=== PATIENT | male | born 1995 | race Caucasian/White ===

== ENCOUNTER → 2020-08-02 13:40 | Outpatient (BNVA) | payer OTHER, SELFPAY | PROVIDERS: PCP Nurse Practitioner Family; Referring Provider Nurse Practitioner Family; Visit Provider Dietitian, Registered | DX: E66.01 Morbid (severe) obesity due to excess calories (principal); Z68.43 Body mass index [BMI] 50.0-59.9, adult ==

== ENCOUNTER → 2020-08-02 13:40 | Outpatient (BNVA) | payer OTHER, SELFPAY | PROVIDERS: PCP Nurse Practitioner Family; Referring Provider Nurse Practitioner Family; Visit Provider Dietitian, Registered | DX: Z76.89 Persons encountering health services in other specified circumstances (principal) ==

== ENCOUNTER → 2020-08-03 13:52 | Outpatient (BNVA) | payer OTHER, SELFPAY | PROVIDERS: PCP Nurse Practitioner Family; Visit Provider Physician Assistant | DX: Z01.89 Encounter for other specified special examinations (principal) | CPT/HCPCS: 99211 ==

== ENCOUNTER → 2020-08-07 08:25 | Outpatient (BNVA) | payer OTHER, SELFPAY | PROVIDERS: PCP Nurse Practitioner Family; Referring Provider Nurse Practitioner Family; Visit Provider Nurse Practitioner Family | DX: G47.33 Obstructive sleep apnea (adult) (pediatric) (principal) | CPT/HCPCS: 99214 ==

== ENCOUNTER → 2020-08-17 08:09 | Outpatient (BNVA) | payer OTHER, SELFPAY | PROVIDERS: PCP Nurse Practitioner Family; Referring Provider Nurse Practitioner Family; Visit Provider Surgery | DX: Z76.89 Persons encountering health services in other specified circumstances (principal) ==

== ENCOUNTER 2020-09-24 14:40 | Emergency (ER) | payer OTHER, SELFPAY ==
[2020-09-24 15:12] VITALS: BP 141/81; PULSE 117; RESP 20; TEMP 37.4; O2SAT 99; BMI 48.7
--- NOTE | 2020-09-24 15:16 | XR_ITS ---
EXAMINATION: XR CHEST CLINICAL INFORMATION: Cough. COMPARISON: None TECHNIQUE: Frontal view of the chest was obtained. FINDINGS: No significant abnormality is noted involving the heart, lungs, mediastinum, bony thorax or soft tissues. XR/XR chest 1V IMPRESSION: Unremarkable chest examination.
--- NOTE | 2020-09-24 15:17 | ED_ITS ---
HPI - URI/Sore Throat General Chief Complaint: Upper Respiratory Symptoms Stated Complaint: covid symptoms Time Seen by Provider: 09/24/20 15:11 Source: patient Mode of arrival: ambulatory Limitations: no limitations History of Present Illness HPI Narrative: 25-year-old male with past medical history of DANIE, asthma and obesity is here with cough, shortness of breath, fatigue, chills times 24 hours. No chest pain, leg swelling or pain. No fevers. Using home albuterol with continued symptoms. MD elicited complaint: cough Pertinent past history: asthma Onset (ago): hour(s) Consistency: intermittent Severity: mild Able to tolerate fluids by mouth: Yes Exacerbating factors: exertion Relieving factors: nothing Associated symptoms: chills, myalgias, headache, cough and shortness of breath Treatments prior to arrival: none Related Data Home Medications Medication Instructions Recorded Confirmed albuterol sulfate 90 mcg/actuation 2 puff INHALATION Q4-6H PRN 08/07/20 08/17/20 aerosol inhaler Allergies Allergy/AdvReac Type Severity Reaction Status Date / Time No Known Allergies Allergy Verified 08/07/20 11:53 Review of Systems Review of Systems: Yes all other systems are reviewed and are negative Constitutional: Constitutional: Reports no additional constitutional complaints, Denies body ache(s), Denies chills, Denies fever(s), Denies headache(s) and Denies weakness Eyes: Eyes: Reports no additional eye complaints and Denies change in vision ENT: Reports system reviewed and no additional complaints, except as documented, Denies dizziness, Denies headache(s), Denies nasal congestion, Denies nasal discharge and Denies neck pain Cardiovascular: Cardiovascular: Reports no additional cardiovascular complaints, Denies chest pain, Denies leg edema and Reports dyspnea Respiratory: Respiratory: Reports no additional respiratory complaints, Reports cough and Reports dyspnea Gastrointestinal: Gastrointestinal: Reports no additional gastrointestinal complaints, Denies abdominal pain, Denies diarrhea, Denies nausea and Denies v omiting Genitourinary: Genitourinary: Denies urinary incontinence Musculoskeletal: Musculoskeletal: Reports no additional musculoskeletal complaints, Denies back pain, Denies arthralgias, Denies joint swelling, Denies neck pain, Denies numbness and Denies tingling Integumentary/Breasts: Skin/Breast: Reports system reviewed and no additional complaints, except as docu and Denies rash Neurologic: Denies Abnormal speech present, Denies dizziness, Denies headache(s), Denies numbness, Denies tingling and Denies weakness PMFSH Past Medical History Attestation statement: The following information was validated with the patient. Source: old records reviewed and nursing notes reviewed Medical History Asthma Morbid obesity Family History Family History Father Diabetes Mother No problems noted. Brother No problems noted. Brother No problems noted. Social History Social History Alcohol intake: current Smoking Status: Never smoker Advance Directives: No Advance Directives Information Provided: No Physical Exam Vital Signs: Vital Signs: Last Vital Signs Temp 99.3 F 09/24/20 15:12 Pulse 117 H 09/24/20 15:12 Resp 20 09/24/20 15:12 BP 141/81 H 09/24/20 15:12 Pulse Ox 99 09/24/20 15:12 Body Mass Index 48.7 Const: General: cooperative, healthy appearing, comfortable and no acute distress Orientation/consciousness: patient oriented x3 Limitations: no limitations HENMT: Head: Yes normal to inspection Ears: hearing grossly normal bilaterally General nose exam: Normal external nose present Face and sinus: Yes normal facial exam Mouth: Normal oral and palatal mucosa present Throat: Yes posterior oropharynx normal Eyes: General: appearance normal, both eyes and all related structures Pupils: Equal, round and reactive pupils present Neck: Neck: Yes normal visual inspection Chest: Chest palpation & inspection: normal inspection of the chest Resp: Effort & Inspection: normal respiratory effort Auscultation: clear to auscultation bilaterally Cardio: Rate: regular rate Rhythm: regular rhythm Peripheral pulses: Peripheral pulses 2+ throughout GI: Inspection: Yes normal to inspection Palpation (GI): Soft to palpation and nontender Auscultation: normal bowel sounds Back/Spine/Pelvis: Thoracic/Lumbar Spine: thoracic and lumbar spine normal to inspection Skin: General skin exam: no rashes or lesions noted Neuro: General: patient oriented x3, no focal motor deficits and normal sensation to monofilament Cranial nerves: Yes Equal, round and reactive pupils present Cognition (Neuro): normal cognition Speech: No Abnormal speech present Gait exam (Neuro): Normal gait present Motor exam (neuro): 5/5 motor strength present throughout Extrem: General: Yes normal to inspection Course Course Course Narrative: 25-year-old male here with flu-like symptoms. Will check COVID swab and chest x-ray and reassess. 1600- Chest x-ray unremarkable. COVID test positive. Patient is well peri earing, he has some mild tachycardia which improved with rest. Likely secondary to deconditioning. No hypoxia or shortness of breath. Clear lung sounds throughout. Exam is benign. Reviewed worrisome signs and symptoms of when to return to the emergency department. Comfortable discharge home. MDM - URI/Sore Throat MDM Narrative Medical decision making narrative: influenza, viral infection, COVID-19 infection, pneumonia Medical Records Attestation: I reviewed the patient's medical records. Lab Data Attestation: I reviewed the patient's lab results. Labs: Lab Results 09/24/20 Range/Units 15:17 Coronavirus (PCR) POSITIVE A (Negative) Influenza Type A (PCR) NEGATIVE (Negative) Influenza Type B (PCR) NEGATIVE (Negative) RSV RNA Qual (PCR) NEGATIVE (Negative) Imaging Data Chest x-ray: Attestation: I personally reviewed and interpreted this imaging study as follows: Radiologist's impression: EXAMINATION: XR CHEST CLINICAL INFORMATION: Cough. COMPARISON: None TECHNIQUE: Frontal view of the chest was obtained. FINDINGS: No significant abnormality is noted involving the heart, lungs, mediastinum, bony thorax or soft tissues. XR/XR chest 1V IMPRESSION: Unremarkable chest examination. Discharge Plan Discharge Clinical Impression: COVID-19 Patient Disposition: Home, Self-Care Instructions: COVID-19 (Coronavirus Disease 2019) (ED) Additional Instructions: Take tylenol or motrin if able as needed for pain or fever. Stay well hydrated with fluids like water, gatorade and/or powerade. Wash hands at home. If living with others try to self isolate if possible. If unable wear a mask around others in your home and wash hands frequently. If COVID test is positive you will need to self isolate for a total of 14 days from when your symptoms started. You may return to work sooner if testing is negative and all symptoms resolved >72 hours. You should return to the emergency department for severe shortness of breath, chest pain or fever which does not respond to both tylenol and motrin at home. Prescriptions: No Action albuterol sulfate 90 mcg/actuation HFA aerosol inhaler 2 puff inhalation Q4-6H PRNRF: 0 Referrals: Mayo Dumont FNP-[facility] [Primary Care Provider] - 2 days
[2020-09-24 16:05] LABS: Influenza A PCR NEGATIVE (Negative); Influenza B PCR NEGATIVE (Negative); Resp Syncy Virus RNA Qual PCR NEGATIVE (Negative)
[2020-09-24 16:11] LABS: SARS COV2 PCR INHOUSE POSITIVE (Negative)
== END 2020-09-24 16:27 | disposition home or self-care (01) ==
PROVIDERS: Nurse Practitioner Family; Emergency Provider Internal Medicine; PCP Nurse Practitioner Family
DX: U07.1 COVID-19 (principal); R05 Cough; R06.02 Shortness of breath
CPT/HCPCS: 0241U; 71045; 99283

== ENCOUNTER → 2020-09-26 08:44 | Outpatient (BNVA) | payer OTHER, SELFPAY | PROVIDERS: PCP Nurse Practitioner Family; Visit Provider Surgery | DX: Z76.89 Persons encountering health services in other specified circumstances (principal) ==

== ENCOUNTER 2020-10-02 08:41 | Outpatient (REF) | payer OTHER, SELFPAY | END 2020-10-02 08:42 | disposition home or self-care (01) | LOC: HO.LAB 08:41 | PROVIDERS: Visit Provider Nurse Practitioner Family | DX: U07.1 COVID-19 (principal) | CPT/HCPCS: U0003 ==

== ENCOUNTER 2020-10-02 19:34 | Emergency (ER) | payer OTHER, SELFPAY ==
--- NOTE | 2020-10-02 | XR_ITS ---
EXAMINATION: XR CHEST CLINICAL INFORMATION: Cough, shortness of breath, fever COMPARISON: 09/24/2020 and 03/11/2017 TECHNIQUE: Frontal view of the chest was obtained. FINDINGS: Lung volumes are low with coarse interstitial opacity. No focal consolidation or mass. No pleural effusion or pneumothorax. Normal cardiomediastinal silhouette. XR/XR chest 1V IMPRESSION: Lung volumes remain low with coarse interstitial opacity, similar to the prior study 09/24/2020. The lung volumes are decreased from the study 03/11/2017. The interstitial prominence could reflect bronchovascular crowding. Prior studies give a history of asthma, which can result in chronic interstitial prominence as well. No definite acute superimposed pulmonary disease.
[2020-10-02 19:39] VITALS: PULSE 122; RESP 20; TEMP 38.8; BMI 51.3
[2020-10-02 19:45] VITALS: PULSE 132; O2SAT 98
[2020-10-02] MEDS: Acetaminophen 325 MG TABLET 650 MG PO (19:57)
--- NOTE | 2020-10-02 20:25 | ED.SOB ---
HPI - SOB/Dyspnea General Chief Complaint: Dyspnea Stated Complaint: covid+ Time Seen by Provider: 10/02/20 20:25 Source: patient Mode of arrival: ambulatory Limitations: no limitations History of Present Illness HPI Narrative: patient has history of asthma was tested positive for COVID on 09/24 was feeling better yesterday he was feeling much much better and today he has fever of 101 with increased cough and shortness of breath patient tried inhaler at home without much relief cough is mostly dry elicited complaint: shortness of breath and cough Pertinent past history: asthma Onset (ago): day(s) (8) Related Data Home Medications Medication Instructions Recorded Confirmed albuterol sulfate 90 mcg/actuation 2 puff INHALATION Q4-6H PRN 08/07/20 10/02/20 aerosol inhaler Previous Rx's Medication Instructions Recorded prednisone 20 mg tablet 20 mg PO DAILY 5 Days #5 tab 09/27/20 fluticasone propionate 44 1 puff INHALATION BID 30 Days 10/02/20 mcg/actuation HFA aerosol inhaler #10.6 g Allergies Allergy/AdvReac Type Severity Reaction Status Date / Time No Known Allergies Allergy Verified 10/02/20 09:05 Review of Systems Review of Systems: REVIEW OF SYSTEMS: Pertinent positives and negatives are stated above in the history. GEN: ++ fevers, chills, fatigue HEENT: no nasal congestion, sore throat, ear pain NEURO: no headache, dizziness, focal weakness PULM: ++ cough, shortness of breath CV: no chest pain, palpitations, LE edema ABD: no abdominal pain, nausea, vomiting, diarrhea : no dysuria, urgency, frequency SKIN: no rash ROS otherwise negative x 10 PMFSH Past Medical History Medical History Asthma Depression Dyslipidemia Fatty liver Periodic limb movement Surgical History Morbid obesity Family History Family History Father Diabetes Mother No problems noted. Brother No problems noted. Brother No problems noted. Social History Social History Alcohol intake: current Smoking Status: Never smoker Advance Directives: No Advance Directives Information Provided: No Physical Exam Vital Signs: Vital Signs: Last Vital Signs Temp 101.8 F H 10/02/20 19:39 Pulse 132 H 10/02/20 19:45 Resp 20 10/02/20 19:39 Pulse Ox 98 10/02/20 19:45 Body Mass Index 51.3 Appearance: Alert. Oriented X3. No acute distress. Eyes: Pupils equal, round and reactive to light. ENT: Pharynx normal. Neck: Normal inspection. Neck supple. CVS: tachycardia, regular rhythm. Pulses normal. Respiratory: No respiratory distress. Decreased air entry bilateral no crackles or rales prolonged expiration Abdomen: Soft and nontender. Skin: Skin warm and dry. Normal skin color. Normal skin turgor. Extremities: No lower extremity edema. Good range of movement Neuro: Oriented X 3. No motor deficit. No sensory deficit. Discharge Plan Discharge Prescriptions: No Action prednisone 20 mg tablet 20 mg PO DAILY 5 Days Qty: 5 RF: 0 Flovent HFA 44 mcg/actuation HFA aerosol inhaler 1 puff inhalation BID 30 Days Qty: 10.6 RF: 1 albuterol sulfate 90 mcg/actuation HFA aerosol inhaler 2 puff inhalation Q4-6H PRNRF: 0
[2020-10-02] MEDS: guaiFEN/Codeine SF 200/20/10ML 10 ML LIQUID PO (20:59)
[2020-10-02] MEDS: dexAMETHasone 6 MG TABLET PO (20:59)
[2020-10-02] MEDS: Azithromycin 500 MG TABLET PO (20:59)
[2020-10-02 21:02] VITALS: BP 156/87; PULSE 109; RESP 16; TEMP 38.3; O2SAT 97
== END 2020-10-02 21:26 | disposition home or self-care (01) ==
PROVIDERS: Emergency Provider Internal Medicine
DX: U07.1 COVID-19 (principal); R06.00 Dyspnea, unspecified
CPT/HCPCS: 71045; 99283; 99284; J8540

== ENCOUNTER 2020-10-12 06:44 | Outpatient (REF) | payer OTHER, SELFPAY | END 2020-10-12 06:45 | disposition home or self-care (01) | LOC: HO.LAB 06:44 | PROVIDERS: Visit Provider Nurse Practitioner Family | DX: Z13.89 Encounter for screening for other disorder (principal) ==

== ENCOUNTER → 2020-10-29 08:45 | Outpatient (BNVA) | payer OTHER, SELFPAY | PROVIDERS: PCP Nurse Practitioner Family; Visit Provider Surgery | DX: Z76.89 Persons encountering health services in other specified circumstances (principal) ==

== ENCOUNTER → 2020-11-26 08:25 | Outpatient (BNVA) | payer OTHER, SELFPAY | PROVIDERS: PCP Nurse Practitioner Family; Visit Provider Surgery ==

== ENCOUNTER 2020-12-21 09:18 | Emergency (ER) | payer OTHER, SELFPAY ==
[2020-12-21 09:20] VITALS: BP 142/81; PULSE 90; RESP 18; TEMP 37.1; O2SAT 100; BMI 49.7
--- NOTE | 2020-12-21 12:17 | ED_ITS ---
HPI - Abdominal Pain General Chief Complaint: Abdominal Pain Stated Complaint: ABD PAIN Time Seen by Provider: 12/21/20 12:03 Source: patient Mode of arrival: ambulatory Limitations: no limitations History of Present Illness HPI narrative: 25 y/o male with history of morbid obesity, fatty liver, asthma, DANIE, COVID-19 in Sep 2020 who presents to the ED from his PCP office with reports of GI bleeding. He states the bleeding started 2 days ago. The pain was preceeded by intermittent, sharp RUQ pain that started about 1 week ago. He admits to nausea but no vomiting. Two days ago he developed BRBPR with brown stool with red blood mixed in as well as red blood on the toilet paper when he wiped. This happened once. Last night he developed dark black loose stool x1 and it recurred this morning once as well. He states he has also had some LLQ ache as well. No fever, chills, dizziness, SOB, or chest pain. MD elicited complaint: abdominal pain and other (GI bleeding) Pertinent past history: none Onset (ago): day(s) (2) Pain Consistency: intermittent and now resolved Location: RUQ and LLQ Severity: moderate Quality: stabbing Radiation: none Migration to: no migration Exacerbating factors: nothing Relieving factors: nothing Context: history of similar episodes (BRBPR in the past, less severe) Associated symptoms: nausea, hematochezia, melena and other (urinary frequency ) Related Data Home Medications Medication Instructions Recorded Confirmed albuterol sulfate 90 mcg/actuation 2 puff INHALATION Q4-6H PRN 08/07/20 12/21/20 aerosol inhaler Previous Rx's Medication Instructions Recorded prednisone 20 mg tablet 20 mg PO DAILY 5 Days #5 tab 09/27/20 azithromycin [Zithromax] 250 mg PO DAILY 4 Days #4 tab 10/02/20 codeine-guaifenesin [Guaifenesin 10 ml PO Q4-6H PRN #120 ml 10/02/20 AC] dexamethasone [Decadron] 6 mg PO DAILY #7 tab 10/02/20 fluticasone propionate 44 1 puff INHALATION BID 30 Days 10/02/20 mcg/actuation HFA aerosol inhaler #10.6 g phentermine 37.5 mg capsule 37.5 mg PO DAILY #30 cap 01/17/21 phentermine 37.5 mg capsule 37.5 mg PO DAILY #30 cap 12/05/20 dicyclomine 10 mg PO TID PRN #10 cap 12/21/20 pantoprazole [Protonix] 40 mg PO DAILY #14 tab 12/21/20 Allergies Allergy/AdvReac Type Severity Reaction Status Date / Time No Known Allergies Allergy Verified 12/21/20 08:48 Review of Systems Review of Systems Constitutional: No Fever, No Chills ENT/Mouth: No sore throat, No Rhinorrhea, No Swallowing Difficulty Cardiovascular: No Chest Pain, No SOB, No Orthopnea, No Edema Respiratory: No Cough, No Sputum, No Wheezing, No dyspnea Gastrointestinal: + Nausea, No Vomiting, No Diarrhea, + abdominal Pain, + Hematochezia, + Melena Genitourinary: No Dysuria, + Urinary Frequency, No Hematuria Musculoskeletal: No joint pain, No Myalgias Skin: No Skin Lesions, No rash Neuro: No Weakness, No Numbness, No Dizziness, No Headache Psych: + Anxiety/Panic, No Depression Heme/Lymph: No Bruising, No Lymphadenopathy Endocrine: No Polyuria, No Polydipsia Physical Exam Vital Signs: Vital Signs: Last Vital Signs Temp 98.7 F 12/21/20 09:20 Pulse 90 12/21/20 09:20 Resp 18 12/21/20 09:20 BP 142/81 H 12/21/20 09:20 Pulse Ox 100 12/21/20 09:20 Body Mass Index 49.7 Appearance: Alert. Oriented X3. No acute distress. Eyes: Pupils equal, round and reactive to light. ENT: Pharynx normal. Neck: Normal inspection. Neck supple. CVS: Normal heart rate and rhythm. Pulses normal. Respiratory: No respiratory distress. Breath sounds normal. Abdomen: Morbidly obese, Soft and nontender to deep palpation, no rebound or guarding. +BS x4 JOSS: no external hemorrhoids, normal sphincter tone, no stool in rectal vault, very small amount of light brown stool on glove Skin: Skin warm and dry. Normal skin color. Normal skin turgor. No rashes. Extremities: No lower extremity edema. Neuro: Oriented X 3. Non-focal. Course Course Course Narrative: 25 y/o male presenting with intermittent abdominal pain, nausea and 2 days of GI bleeding. Concern for possible UGIB with reports of black stool for 2 day. JOSS is unrevealing, no melena noted. Abd exam is completely benign. No tachycardia to suggest active GI bleed. Will get labs and reassess. Will hold off on CT scan for now. Reevaluation(s) Reevaluation #1: H/H stable x2. No bleeding in the 5+ hours of observation in the ER. Guiac negative. LFTs are unremarkable. He is stable for discharge with initiation of PPI x2 weeks and GI referral. Adivsed to return to ER if bleeding were to recur or if he develops recurrent abdominal pain. MDM - Abdominal Pain Lab Data Result diagrams: 12/21/20 14:25 12/21/20 14:25 Labs: Lab Results 12/21/20 12/21/20 12/21/20 Range/Units 12:28 12:28 12:43 WBC 8.8 (4.8-10.8) X10*3/uL RBC 5.90 H (4.60-5.80) X10*6/uL Hgb 14.2 (14.0-18.0) g/dl Hct 46.3 (42-52) % MCV 78.5 L (80-98) fL MCH 24.1 L (27.0-33.0) pg MCHC 30.7 L (31.0-36.0) g/dl RDW 14.8 (11.0-16.0) % Plt Count TNP MPV 11.6 (9.4-12.4) fL Immature Gran % (Auto) 2.5 H (0.0-0.4) % Neut % (Auto) 65.7 (45-73) % Lymph % (Auto) 23.0 (20-40) % [place] % (Auto) 6.7 (2-11) % Eos % (Auto) 1.6 (0-4) % Baso % (Auto) 0.5 (0-2) % Lymph # (Auto) 2.0 (1.2-4.9) X10*3/uL [place] # (Auto) 0.6 (0.1-1.2) X10*3/uL Eos # (Auto) 0.1 (0.0-0.4) X10*3/uL Baso # (Auto) 0.0 (0.0-0.2) X10*3/uL Abs Immat Gran (auto) 0.22 H (0.00-0.03) X10*3/uL Absolute Neuts (auto) 5.8 (2.0-8.3) X10*3/uL Absolute Nucleated RBC 0.000 (0.0-0.012) X10*3/uL Nucleated RBC % (auto) 0.0 (0.0-0.2) /100WBC Smear Tech's Comments VERIFIED PT 12.4 (10.8-13.0) SEC INR 1.0 (0.9-1.1) APTT 25.5 (24.1-38.0) SEC Sodium (135-145) mmol/L Potassium (3.3-5.1) mmol/L Chloride (96-108) mmol/L Carbon Dioxide (22-29) mmol/L Anion Gap (12-20) BUN (9-16) mg/dL Creatinine (0.5-1.4) mg/dL Estim Creat Clear Calc Estimated GFR Random Glucose (60-115) mg/dL Calcium (8.4-10.2) mg/dL Magnesium (1.6-2.6) mg/dL Total Bilirubin (0.0-1.0) mg/dL Direct Bilirubin (0.0-0.5) mg/dL AST (5-37) U/L ALT (0-40) U/L Alkaline Phosphatase (39-117) U/L Total Protein (6.5-8.0) g/dL Albumin (3.5-5.0) g/dL Lipase (8-78) U/L Stool Occult Blood NEG (NEG) 12/21/20 12/21/20 12/21/20 Range/Units 14:25 14:25 14:25 WBC 9.8 (4.8-10.8) X10*3/uL RBC 5.82 H (4.60-5.80) X10*6/uL Hgb 14.0 (14.0-18.0) g/dl Hct 45.2 (42-52) % MCV 77.7 L (80-98) fL MCH 24.1 L (27.0-33.0) pg MCHC 31.0 (31.0-36.0) g/dl RDW 15.0 (11.0-16.0) % Plt Count 329 MPV 10.3 (9.4-12.4) fL Immature Gran % (Auto) 2.8 H (0.0-0.4) % Neut % (Auto) 60.6 (45-73) % Lymph % (Auto) 27.4 (20-40) % [place] % (Auto) 7.0 (2-11) % Eos % (Auto) 1.7 (0-4) % Baso % (Auto) 0.5 (0-2) % Lymph # (Auto) 2.7 (1.2-4.9) X10*3/uL [place] # (Auto) 0.7 (0.1-1.2) X10*3/uL Eos # (Auto) 0.2 (0.0-0.4) X10*3/uL Baso # (Auto) 0.1 (0.0-0.2) X10*3/uL Abs Immat Gran (auto) 0.27 H (0.00-0.03) X10*3/uL Absolute Neuts (auto) 5.9 (2.0-8.3) X10*3/uL Absolute Nucleated RBC 0.000 (0.0-0.012) X10*3/uL Nucleated RBC % (auto) 0.0 (0.0-0.2) /100WBC Smear Tech's Comments PT (10.8-13.0) SEC INR (0.9-1.1) APTT (24.1-38.0) SEC Sodium 140 (135-145) mmol/L Potassium 4.5 (3.3-5.1) mmol/L Chloride 106 (96-108) mmol/L Carbon Dioxide 25 (22-29) mmol/L Anion Gap 14 (12-20) BUN 10 (9-16) mg/dL Creatinine 0.85 (0.5-1.4) mg/dL Estim Creat Clear Calc 191.2 Estimated GFR > 60 Random Glucose 98 (60-115) mg/dL Calcium 9.9 (8.4-10.2) mg/dL Magnesium 2.1 (1.6-2.6) mg/dL Total Bilirubin 0.6 (0.0-1.0) mg/dL Direct Bilirubin 0.2 (0.0-0.5) mg/dL AST 29 (5-37) U/L ALT 65 H (0-40) U/L Alkaline Phosphatase 83 (39-117) U/L Total Protein 8.2 H (6.5-8.0) g/dL Albumin 4.7 (3.5-5.0) g/dL Lipase 22 (8-78) U/L Stool Occult Blood (NEG) Discharge Plan Discharge Clinical Impression: Rectal bleed Patient Disposition: Home, Self-Care Instructions: Gastrointestinal Bleeding (ED) Additional Instructions: Your blood counts and lab workup today was normal. Recommend starting medications as prescribed. Avoid spicy and acidic foods. Avoid NSAIDs such as Motrin, Advil and Ibuprofen. Do not drink alcohol. Stay hydrated and drink plenty of water. Recommend follow up with GI doctor for further workup. If you have recurrent bleeding or have symptoms of lightheadedness, shortness of breath, or chest pain come back to the ER for further evaluation. Prescriptions: New pantoprazole [Protonix] 40 mg tablet,delayed release (DR/EC) 40 mg PO DAILY Qty: 14 RF: 0 dicyclomine 10 mg capsule 10 mg PO TID PRN (Reason: cramps) Qty: 10 RF: 0 No Action prednisone 20 mg tablet 20 mg PO DAILY 5 Days Qty: 5 RF: 0 phentermine 37.5 mg capsule 37.5 mg PO DAILY Qty: 30 RF: 0 phentermine 37.5 mg capsule 37.5 mg PO DAILY Qty: 30 RF: 0 dexamethasone [Decadron] 6 mg tablet 6 mg PO DAILY Qty: 7 RF: 0 azithromycin [Zithromax] 250 mg tablet 250 mg PO DAILY 4 Days Qty: 4 RF: 0 codeine-guaifenesin [Guaifenesin AC] 10-100 mg/5 mL liquid 10 ml PO Q4-6H PRN (Reason: cough) Qty: 120 RF: 0 Flovent HFA 44 mcg/actuation HFA aerosol inhaler 1 puff inhalation BID 30 Days Qty: 10.6 RF: 1 albuterol sulfate 90 mcg/actuation HFA aerosol inhaler 2 puff inhalation Q4-6H PRNRF: 0 Referrals: Juan Danile Barlow [Physician] - 2 days (GI bleed) [facility] Past Medical History Attestation statement: The following information was validated with the patient. Medical History Asthma Depression Dyslipidemia Fatty liver Periodic limb movement Surgical History Morbid obesity Family History Family History Father Diabetes Mother No problems noted. Brother No problems noted. Brother No problems noted. Social History Social History Alcohol intake: never Smoking Status: Never smoker Advance Directives: No Advance Directives Information Provided: Yes
[2020-12-21 12:46] LABS: Hematocrit 46.3 % (42-52); Hemoglobin 14.2 g/dl (14.0-18.0); MANUAL DIFF FLAG SCAN; Mean Corpuscular HGB Conc 30.7 g/dl (31.0-36.0); Mean Corpuscular Hemoglobin 24.1 pg (27.0-33.0); Mean Corpuscular Volume 78.5 fL (80-98); PLT CLUMP 1; SCAN SMEAR FLAG 1
[2020-12-21 12:48] LABS: Basophils Percent Auto 0.5 % (0-2); Eosinophils Absolute Auto 0.1 X10*3/uL (0.0-0.4); Eosinophils Percent Auto 1.6 % (0-4); Imm Gran Abs Auto 0.22 X10*3/uL (0.00-0.03); Imm Gran Pct Auto 2.5 % (0.0-0.4); Mean Platelet Volume 11.6 fL (9.4-12.4); Monocytes Absolute Auto 0.6 X10*3/uL (0.1-1.2); Monocytes Percent Auto 6.7 % (2-11); Neutrophils Absolute Auto 5.8 X10*3/uL (2.0-8.3); Neutrophils Percent Auto 65.7 % (45-73); Prothrombin Time 12.4 SEC (10.8-13.0); Red Cell Distribution Width 14.8 % (11.0-16.0); White Blood Count 8.8 X10*3/uL (4.8-10.8)
[2020-12-21 12:50] LABS: OBS Int Ctl Valid YES; OBS1 NEG (NEG)
[2020-12-21 12:52] LABS: Partial Thromboplastin Time 25.5 SEC (24.1-38.0)
[2020-12-21 13:38] LABS: SLIDE REVIEW VERIFIED
[2020-12-21 14:30] LABS: MANUAL DIFF FLAG NO
[2020-12-21 14:32] LABS: Basophils Absolute Auto 0.1 X10*3/uL (0.0-0.2); Basophils Percent Auto 0.5 % (0-2); Eosinophils Absolute Auto 0.2 X10*3/uL (0.0-0.4); Eosinophils Percent Auto 1.7 % (0-4); Hematocrit 45.2 % (42-52); Imm Gran Abs Auto 0.27 X10*3/uL (0.00-0.03); Imm Gran Pct Auto 2.8 % (0.0-0.4); Lymphocytes Absolute Auto 2.7 X10*3/uL (1.2-4.9); Lymphocytes Percent Auto 27.4 % (20-40); Mean Corpuscular Hemoglobin 24.1 pg (27.0-33.0); Mean Corpuscular Volume 77.7 fL (80-98); Mean Platelet Volume 10.3 fL (9.4-12.4); Monocytes Absolute Auto 0.7 X10*3/uL (0.1-1.2); Neutrophils Absolute Auto 5.9 X10*3/uL (2.0-8.3); Neutrophils Percent Auto 60.6 % (45-73); Platelet Count 329 X10*3/uL (160-400); Red Blood Count 5.82 X10*6/uL (4.60-5.80); White Blood Count 9.8 X10*3/uL (4.8-10.8)
[2020-12-21 14:55] LABS: Lipase 22 U/L (8-78)
[2020-12-21 14:56] LABS: Alanine Aminotransferase 65 U/L (0-40); Albumin Level 4.7 g/dL (3.5-5.0); Alkaline Phosphatase 83 U/L (39-117); Anion Gap 14 (12-20); Aspartate Amino Transferase 29 U/L (5-37); Bilirubin Direct 0.2 mg/dL (0.0-0.5); Bilirubin Total 0.6 mg/dL (0.0-1.0); Blood Urea Nitrogen 10 mg/dL (9-16); Calcium 9.9 mg/dL (8.4-10.2); Carbon Dioxide 25 mmol/L (22-29); Chloride 106 mmol/L (96-108); Creatinine Clr Calc Pharmacy 191.2; Estimated Glomerular Filt Rate > 60; Glucose Random 98 mg/dL (60-115); Magnesium 2.1 mg/dL (1.6-2.6); Potassium 4.5 mmol/L (3.3-5.1); Sodium 140 mmol/L (135-145); Total Protein 8.2 g/dL (6.5-8.0)
== END 2020-12-21 15:27 | disposition home or self-care (01) ==
PROVIDERS: Physician Assistant; Emergency Provider Emergency Medicine Emergency Medical Services; PCP Nurse Practitioner Family
DX: K62.5 Hemorrhage of anus and rectum (principal); R10.11 Right upper quadrant pain; R10.32 Left lower quadrant pain; Z79.899 Other long term (current) drug therapy
CPT/HCPCS: 36415; 80048; 80076; 82272; 83690; 83735; 85025; 85610; 85730; 99283

== ENCOUNTER → 2020-12-24 08:19 | Outpatient (BNVA) | payer OTHER, SELFPAY | PROVIDERS: PCP Nurse Practitioner Family; Visit Provider Surgery ==

== ENCOUNTER → 2021-01-22 10:47 | Outpatient (BNVA) | payer OTHER, SELFPAY | PROVIDERS: PCP Nurse Practitioner Family; Visit Provider Physician Assistant ==

== ENCOUNTER → 2021-01-23 08:12 | Outpatient (BNVA) | payer OTHER, SELFPAY | PROVIDERS: PCP Nurse Practitioner Family; Visit Provider Surgery ==

== ENCOUNTER → 2021-02-06 08:38 | Outpatient (BNVA) | payer OTHER, SELFPAY | PROVIDERS: PCP Nurse Practitioner Family; Visit Provider Surgery ==

== ENCOUNTER → 2021-02-08 14:02 | Outpatient (BNVA) | payer OTHER, SELFPAY | PROVIDERS: PCP Nurse Practitioner Family; Visit Provider Physician Assistant ==

== ENCOUNTER 2021-02-14 06:00 | Inpatient (IN) | payer OTHER, SELFPAY ==
[2021-02-07 13:17] LABS: MANUAL DIFF FLAG NO
[2021-02-07 13:24] LABS: Basophils Absolute Auto 0.1 X10*3/uL (0.0-0.2); Basophils Percent Auto 0.5 % (0-2); Eosinophils Absolute Auto 0.2 X10*3/uL (0.0-0.4); Eosinophils Percent Auto 1.9 % (0-4); Hematocrit 45.3 % (42-52); Hemoglobin 13.9 g/dl (14.0-18.0); Imm Gran Abs Auto 0.29 X10*3/uL (0.00-0.03); Imm Gran Pct Auto 3.1 % (0.0-0.4); Lymphocytes Absolute Auto 2.2 X10*3/uL (1.2-4.9); Lymphocytes Percent Auto 23.7 % (20-40); Mean Corpuscular HGB Conc 30.7 g/dl (31.0-36.0); Mean Corpuscular Hemoglobin 24.1 pg (27.0-33.0); Mean Corpuscular Volume 78.5 fL (80-98); Mean Platelet Volume 10.9 fL (9.4-12.4); Monocytes Absolute Auto 0.8 X10*3/uL (0.1-1.2); Monocytes Percent Auto 8.7 % (2-11); Neutrophils Absolute Auto 5.8 X10*3/uL (2.0-8.3); Neutrophils Percent Auto 62.1 % (45-73); Platelet Count 328 X10*3/uL (160-400); Red Blood Count 5.77 X10*6/uL (4.60-5.80); Red Cell Distribution Width 14.5 % (11.0-16.0); White Blood Count 9.3 X10*3/uL (4.8-10.8)
[2021-02-07 13:37] LABS: Estimated Average Glucose 111 mg/dL; Hemoglobin A1c % 5.5 %
[2021-02-07 13:41] LABS: Alanine Aminotransferase 42 U/L (0-40); Albumin Level 4.3 g/dL (3.5-5.0); Alkaline Phosphatase 78 U/L (39-117); Anion Gap 13 (12-20); Aspartate Amino Transferase 20 U/L (5-37); Bilirubin Total 0.4 mg/dL (0.0-1.0); Blood Urea Nitrogen 16 mg/dL (9-16); C Reactive Protein 2.31 mg/dL (< or = 0.50); Calcium 9.5 mg/dL (8.4-10.2); Carbon Dioxide 28 mmol/L (22-29); Chloride 103 mmol/L (96-108); Cholesterol 199 mg/dL; Estimated Glomerular Filt Rate > 60; Glucose Random 109 mg/dL (60-115); HDL Cholesterol 46 mg/dL; LDL Cholesterol Calculated 140 mg/dl; Potassium 4.8 mmol/L (3.3-5.1); Sodium 139 mmol/L (135-145); Total Protein 7.8 g/dL (6.5-8.0); Triglycerides 68 mg/dL
[2021-02-07 13:44] LABS: Prothrombin Time 12.3 SEC (10.8-13.0)
[2021-02-07 13:54] LABS: Partial Thromboplastin Time 43.4 SEC (24.1-38.0)
[2021-02-07 14:04] LABS: TSH reflex Free T4 1.75 uIU/mL (0.32-4.0)
[2021-02-08 09:12] LABS: Insulin Level Total 15.3 uIU/mL
[2021-02-08 10:03] VITALS: BMI 45.9
[2021-02-09 20:22] LABS: TS Negative Control Passed; TS Panel A 0; TS Panel B 4; TS Positive Control Passed; TSpotTB Negative (SeeBelow)
--- NOTE | 2021-02-13 18:52 | MHC.SHP ---
Pre-Procedural Eval Section A The patient is an INPATIENT: Yes The History & Physical has been completed within 30 days and I have reviewed it.: No Section B Chief Complaint: obesity Details of Present Illness: Obesity Relevant Family History (Specify if Yes): No Relevant Social History: None Present Medications: see Short Stay Collaborative assessment Medical History: No relevant PMH History of Previous Operations: No relevant previous surgery Allergies: Allergies Allergy/AdvReac Type Severity Reaction Status Date / Time No Known Allergies Allergy Verified 02/08/21 08:56 Review of Systems Sugical H&P ROS: Negative: Constitution, Cardiovascular, Respiratory, Neurological, Psychiatric, Hem-Onc, Allergic/Immunologic, Gastrointestinal, Genitourinary, Musculoskeletal, Integumentary, Endocrine and Eyes/Ears/Nose/Throat Exam Surgical H&P Exam: Normal: HEENT, Normal: Heart, Normal: Lungs, Normal: Extremities, Normal: Abdomen, Normal: Skin and Normal: Neurological Plan Diagnosis/Plan: Unchanged I have reviewed the history and physical and performed a pertinent physical examination on my patient. No changes have occurred unless specified.
[2021-02-14] VITALS (11 sets, daily range): BP systolic 128–142; BP diastolic 76–86; PULSE 100–129; RESP 16–20; TEMP 35.9–36.7; O2SAT 94–98
[2021-02-14] MEDS: Lactated Ringers 1,000 ML 20 ML IVCONT (07:11)
[2021-02-14] MEDS: Lactated Ringers 1,000 ML 999 ML IV (07:12)
--- NOTE | 2021-02-14 07:15 | PC.NURSE ---
NEW ORDER FOR TYPE AND SCREEN PLACED PER NOTE IN CHART. [employer] TECHNICIAN REQUESTED NEW ORDER FOR TYPE AND SCREEN BLOOD BAND HAD AN ISSUE. A NEW ORDER FOR TYPE AND SCREEN WAS PLACED AND A BLOOD BAND WAS PLACED ON PATIENT'S RIGHT WRIST. PATIENT WITH A CPAP AND REQUEST PLACED TO HAVE IT CHECKED OUT.
--- NOTE | 2021-02-14 07:16 | HO.ANESPROP2 ---
[facility] Active Problems Active Problems: All Active Problems (Updated 02/08/21 @ 09:59 by Ilana Allison) Obstructive sleep apnea (Acute ~04/2020) Morbid obesity (Acute) COVID-19 (Acute) Encounter for screening for respiratory tuberculosis (Acute) Rectal bleed (Acute) Abdominal pain (Acute) Asthma (Acute) Past Medical History Medical History Asthma Depression Dyslipidemia Fatty liver Morbid obesity DANIE on CPAP Periodic limb movement Family History Family History Father Diabetes Mother No problems noted. Brother No problems noted. Brother No problems noted. Surgical History Surgical History (Updated 02/08/21 @ 09:59 by Ilana Allison) No significant past surgical history Social History Social History (Updated 01/22/21 @ 10:53 by Nadia Stafford [facility]) Household Members: Friend(s) Are you a primary healthcare architect to a significant other at home: No Do you presently have visiting nurse or other home services: No Alcohol intake: current Alcohol intake frequency: a few times a month Alcohol type: wine and hard liquor Smoking Status: Never smoker Use of substances other than those prescribed or required for medical reasons: No Have you been hit, kicked, punched, or otherwise hurt by someone within the past year? If so, by whom?: No Advance Directives: No Advance Directives Information Provided: No Advance Directives on File: No Recently lost weight without trying: No Current occupational status: employed Current occupation: [employer] Allergies Allergy/AdvReac Type Severity Reaction Status Date / Time No Known Allergies Allergy Verified 02/14/21 07:19 Active Medications: Current Medications Generic Name Dose Route Start Last Admin Trade Name Freq PRN Reason Stop Dose Admin Lactated Ringer's 1,000 mls @ 20 mls/hr 02/13/21 14:30 02/14/21 07:11 Lr IVCONT 20 mls/hr .Q24H BRETT Administration Home Medications Medication Instructions Recorded Confirmed Last Taken Type albuterol sulfate 90 mcg/actuation 2 puff INHALATION Q4-6H PRN 08/07/20 02/08/21 Unknown History aerosol inhaler Exam Exam Date and Time: February 14, 2021 0716 Height,Weight and Vital Signs: Height 5 ft 9 in Weight 141.067 kg Last Vital Signs Temp 98.1 F 02/14/21 06:28 Pulse 108 H 02/14/21 06:28 Resp 18 02/14/21 06:28 BP 134/81 02/14/21 06:28 Pulse Ox 98 02/14/21 06:28 Pertinent Lab Results Pertinent Lab Results: Laboratory Tests 02/07/21 02/07/21 02/07/21 12:30 12:30 12:30 WBC 9.3 RBC 5.77 Hgb 13.9 L Hct 45.3 MCV 78.5 L MCH 24.1 L MCHC 30.7 L RDW 14.5 Plt Count 328 MPV 10.9 Immature Gran % (Auto) 3.1 H Neut % (Auto) 62.1 Lymph % (Auto) 23.7 [place] % (Auto) 8.7 Eos % (Auto) 1.9 Baso % (Auto) 0.5 Lymph # (Auto) 2.2 [place] # (Auto) 0.8 Eos # (Auto) 0.2 Baso # (Auto) 0.1 Abs Immat Gran (auto) 0.29 H Absolute Neuts (auto) 5.8 Absolute Nucleated RBC 0.000 Nucleated RBC % (auto) 0.0 PT 12.3 INR 1.0 APTT 43.4 H Sodium Potassium Chloride Carbon Dioxide Anion Gap BUN Creatinine Estim Creat Clear Calc Estimated GFR Random Glucose Estimat Average Glucose Hemoglobin A1c % Total Insulin Calcium Total Bilirubin AST ALT Alkaline Phosphatase C-Reactive Protein Total Protein Albumin Triglycerides Cholesterol LDL Cholesterol, Calc HDL Cholesterol TSH TB Test (T-Spot) Com Negative TB Test Nil Control Passed TB Test Panel A 0 TB Test Panel B 4 TB Test Positive Cntrl Passed 02/07/21 02/07/21 02/07/21 12:30 12:30 12:30 WBC RBC Hgb Hct MCV MCH MCHC RDW Plt Count MPV Immature Gran % (Auto) Neut % (Auto) Lymph % (Auto) [place] % (Auto) Eos % (Auto) Baso % (Auto) Lymph # (Auto) [place] # (Auto) Eos # (Auto) Baso # (Auto) Abs Immat Gran (auto) Absolute Neuts (auto) Absolute Nucleated RBC Nucleated RBC % (auto) PT INR APTT Sodium 139 Potassium 4.8 Chloride 103 Carbon Dioxide 28 Anion Gap 13 BUN 16 D Creatinine 0.78 Estim Creat Clear Calc TNP Estimated GFR > 60 Random Glucose 109 Estimat Average Glucose 111 Hemoglobin A1c % 5.5 Total Insulin 15.3 Calcium 9.5 Total Bilirubin 0.4 AST 20 ALT 42 H Alkaline Phosphatase 78 C-Reactive Protein 2.31 H Total Protein 7.8 Albumin 4.3 Triglycerides 68 Cholesterol 199 LDL Cholesterol, Calc 140 HDL Cholesterol 46 TSH 1.75 TB Test (T-Spot) Com TB Test Nil Control TB Test Panel A TB Test Panel B TB Test Positive Cntrl Airway Mallampati Class: II TM Dist: >3cm Neck ROM: Full Loose/Missing/Broken Teeth: No Heart: tachy, reg rhythm Lungs: CTA Assessment and Plan Assessment Anesthesia Assessment: Anesthesia Plan Discussed and Chart Reviewed Final Anesthetic Review NPO: Yes ASA Class: III Final Preanesthetic Review: Meds/Allgs Chart Reviewed, Consent Obtained/Reviewed and Anes Risks/Benef Reviewed Patient Risk: Intermediate Procedure Risk: Intermediate Anesthetic Plan Anesthetic Plan: GA Disposition: Standard PACU
--- NOTE | 2021-02-14 07:20 | PC.NURSE ---
PT BROUGHT ONDANSETRON 4 MG TABS FOR A TOTAL AMOUNT OF 20. PT BROUGHT IC SUCRALFATE ONE BOTTLE. PT BROUGHT PANTOPRAZOLE 4 MG TABS FOR A TOTAL AMOUNT OF 25. NO NARCOTICS WITH PATIENT,
[2021-02-14 07:33] LABS: COVID-19 Test Negative (Negative)
--- NOTE | 2021-02-14 11:03 | P.DS_ITS ---
DS: Providers Provider Date of Service: 02/19/21 Date of admission: 02/14/21 06:00 Primary care physician: CELESTE Buckley DS: Medications Discharge Medications Home Medications: Home Medications Medication Instructions Recorded Confirmed albuterol sulfate 90 mcg/actuation 2 puff INHALATION Q4-6H PRN 08/07/20 02/08/21 aerosol inhaler Previous Rx's Medication Instructions Recorded fluticasone propionate 44 1 puff INHALATION BID 30 Days 10/02/20 mcg/actuation HFA aerosol inhaler #10.6 g phentermine 37.5 mg capsule 37.5 mg PO DAILY #30 cap 11/11/20 ondansetron HCl 4 mg tablet 4 mg PO Q12H #20 tab 02/06/21 pantoprazole 40 mg tablet,delayed 40 mg PO DAILY #30 tab 02/06/21 release sucralfate 100 mg/mL oral 10 ml PO BID #400 ml 02/06/21 suspension DS: Summary Time Spent with Patient Time attestation: ADMITTING DIAGNOSIS: morbid obesity, asthma DISCHARGE DIAGNOSIS: same, s/p laparoscopic sleeve gastrectomy PAST SURGICAL HISTORY: none PROCEDURE: upper endoscopy, laparoscopic sleeve gastrectomy DISCHARGE SUMMARY: History of Present Illness: The patient is a 25 year-old man with a BMI of 52.9 kg/m2 and associated co- morbidities as described above. The patient had extensive work-up,lost 37.8 lbs preoperatively and was electively scheduled for laparoscopic, possible open sleeve gastrectomy and gastropexy. Risks and complications of the surgery were discussed with the patient in advance, particularly the possibility of , pulmonary embolism, anastomotic leak, bleeding, bowel injury, GERD, cardiac, renal or pulmonary complications. The patient understood all the risks and was in agreement with the surgical plan. Hospital Course: The patient underwent an uneventful laparoscopic sleeve gastrectomy with gastropexy on the day of admission. Postoperatively, the patient was transferred to the surgical floor. The patient was on IV Acetaminophen and IV dilaudid for pain control. Patient was started on bariatric phase 1 diet POD #0. On postoperative day one, the patient was feeling well without nausea, vomiting, fevers, or tachycardia. The patient had some mild incisional pain. The abdomen was soft. On the morning of postoperative day one, the patient was continued on 1 ounce of water or ice every half hour. During the first day, the patient did fairly well, having some incisional pain, but able to ambulate adequately and to tolerate liquids well. Since the patient is doing well, we decided that the patient was ready to be discharged. The patient was given instructions to follow-up with me next week and to call my office for any fever over 101, persistent abdominal pain, nausea, vomiting, GERD, symptoms of DVT such as calf tenderness, or leg swelling, or pulmonary embolism such as chest pain or shortness of breath. The patient was also instructed to drink 40-60 ounces of liquids per day using the 1-ounce cups. The patient was given prescription for Tylenol for pain, Zofran prn for nausea, and pantoprazole and carafate. The patient was encouraged to ambulate and use the incentive spirometer. The patient was allowed to shower, but no baths, and encouraged to stay active at home. All of these instructions were given to the patient personally. All questions were answered and the patient understood all instructions, the instructions were also given to the patient in print. Total time spent providing and/or coordinating discharge services: 15 Discharge coordination time: Less than 30 minutes Physical Exam Vital Signs: Vital Signs: Last Vital Signs Temp 98.1 F 02/14/21 06:28 Pulse 108 H 02/14/21 06:28 Resp 18 02/14/21 06:28 BP 134/81 02/14/21 06:28 Pulse Ox 98 02/14/21 06:28 Body Mass Index 45.9 DS: Data Data Completed and Pending Pending studies at discharge: Pending at discharge 02/14/21 09:55 Surgical [PTH] Routine Labs on day of discharge: Laboratory Results - last 24 hr 02/14/21 02/14/21 06:24 06:57 COVID-19 (AMINATA) Negative COVID-19 Clin Com See Note Blood Type O Positive Antibody Screen NEGATIVE Discharge Plan Discharge Anticipated Discharge Date/Time: 02/15/21 11:01 Patient Disposition: Home, Self-Care Discharge Diagnosis: s/p sleeve gastrectomy Referrals: Mayo Dumont FNP-BC [Primary Care Provider] - 1 Week Discharge Medications: Continued Flovent HFA 44 mcg/actuation HFA aerosol inhaler 1 puff inhalation BID 30 Days Qty: 10.6 RF: 1 albuterol sulfate 90 mcg/actuation HFA aerosol inhaler 2 puff inhalation Q4-6H PRN (Reason: Wheezing) RF: 0 pantoprazole 40 mg tablet,delayed release (DR/EC) 40 mg PO DAILY Qty: 30 RF: 2 sucralfate 100 mg/mL suspension 10 ml PO BID Qty: 400 RF: 2 ondansetron HCl [Zofran] 4 mg tablet 4 mg PO Q12H Qty: 20 RF: 0 Discontinued phentermine 37.5 mg capsule 37.5 mg PO DAILY Qty: 30 RF: 0 Discharge Orders: Discharge Order (Routine); Ordered 02/15/21 Ordered By: Harjeet Monzon Diet: other Activity on Discharge: No heavy lifting Stand Alone Forms: Patient Portal Discharge page Activity Restrictions/Additional Instructions: No tub baths, sex or returning to work until discussed at first post op appointment. No exercise, alcohol, tobacco or illegal drug use. Continue to use incentive spirometer hourly while awake. Walk in home for 5- 10 minutes every 2 hours during the first week. Continue phase 1 diet today and start phase 2 diet tomorrow morning. Follow all instructions in the bariatric handbook and call with any questions. Care Plan Goals: weight loss Health Concerns: morbid obesity Plan of Treatment: see idscharge instructions Assessment: POD #1, stable s/p laparoscopic sleeve gastrectomy Discharge Date/Time: 02/15/21 09:15
--- NOTE | 2021-02-14 11:03 | PM.OP ---
Brief Operative Note Date of Service: 02/14/21 Pre-op diagnosis: Morbid obesity and comorbidities (see below) Post-op diagnosis: same Procedure: INITIAL PATIENT BMI ON PRESENTATION AT OUR OFFICE: 54 kg/m2 LAST BMI BEFORE SURGERY: 46.8 kg/m2 COMORBIDITIES: The patient participated in an intensive weekly lifestyle intervention and exercise program during which the patient has lost between the initial office visit and the last preoperative visit 48 lbs, or 12% of initial actual body weight. The patient met the BMI-criteria for bariatric surgery based on the BMI on initial presentation. The patient should not be penalized for achieving such weight loss because it is not sustainable long-term without surgical intervention and it was achieved in preparation for bariatric surgery under my direction and based on my published research ([email or web address] and [email or web address]) that a 10% preoperative weight loss improves long-term weight loss after surgery and reduces perioperative complications. Insurance carriers such as [employer] have endorsed my recommendations and have included in their policies criteria to include a 10% preoperative weight loss requirement. PROCEDURE: Esophago-gastroscopy, laparoscopic lysis of adhesions, laparoscopic sleeve gastrectomy and laparoscopic gastropexy INDICATIONS: This is a 25 year-old male who was electively scheduled for laparoscopic, possibly open sleeve gastrectomy. The risks and complications of the procedure were discussed with the patient in advance, particularly the possibility of ; pulmonary embolism; staple line leak; bleeding; GERD; cardiac, pulmonary, or renal complications; as well as long-term problems such as insufficient weight loss, vitamin deficiency, strictures, or ulcers. The patient understood all the risks, and was in agreement to proceed with surgery. DESCRIPTION OF PROCEDURE: After informed consent was obtained from the patient, the patient was given preoperative antibiotics, and was transferred to the operating room. After successful induction of general anesthesia, pneumatic compressive devices were placed on both lower extremities. An upper endoscopy was performed next. The oropharynx and esophagus appeared to be within normal limits. There was a diaphragmatic hernia present of small size consistent with the findings of the preoperative upper GI. The stomach was entered. Then after all fluid and air were suctioned and the stomach was fully decompressed, the scope was withdrawn and secured in the mid esophagus. The patient was then prepped and draped in the usual sterile manner, and abdominal access was established at the right upper quadrant with the Wendy technique. A 12 mm blunt port was inserted, and the abdomen was insufflated with CO2 to a pressure of 15 mmHg. Under direct visualization, additional ports were placed, specifically two 5 mm Versi-step ports to the left upper quadrant, and a 5 mm Versi-Step port to the right upper quadrant. 1% lidocaine plan was used to infiltrate all port sites as well as all fascia defects. Using the EndoClose suture passer device, we placed a #1 Polysorb tie across the falciform ligament in order to retract it up against the abdominal wall and prevent injury of the ligament with our instruments during the procedure. Following that, the patient was placed in a steep reverse Trendelenburg position. An additional 5 mm port was placed to the right flank for the Mediflex retractor that was used to retract the left lobe of the liver. The gastro-esophageal fat pad was opened with the ultrasonic device (Thunderbeat, Olympus) and the anterior esophagus and hiatus were exposed. The angle of His was opened with the ultrasonic device the fundus of the stomach from any diaphragmatic and splenic attachments. I then opened the gastrocolic ligament between the transverse colon and the greater curvature of the stomach with the ultrasonic device to enter the lesser sac and facilitate the ligation of the short gastric vessels. I started at a mid-point along the greater curvature and using the Thunderbeat, all short gastric vessels were divided all the way to the angle of His until the left arabella was completely dissected at its entirety. I then divided the gastro-colic ligament distally to a distance of about 3-4 cm proximal to the esophagus. There were extensive congenital adhesions between the pancreas and posterior gastric wall. Those were lysed completely with the ultrasonic device. Surgery was extremely difficult due to the patient's large BMI, body habitus and extensive amount of intra-abdominal fat. Adhesiolysis took approximately 45 min to complete. The stomach was then divided transversely with one Endo GARY-45 purple, one GARY-60 articulating purple load, one GARY-45 organge load and three GARY-60 organge loads using the AEON stapler and loads. Every effort was made that the gastric sleeve had a tubular shape and an even caliber throughout. Once the sleeve resection was completed, the staple line of the gastric sleeve was reinforced with Hemoclips. The resected stomach was retrieved without difficulty from the Wendy port. A gastropexy was then performed in order to prevent postoperative GERD and partial gastric volvulus. Several interrupted 2.0 Surgidac sutures were placed between the sleeve's staple line and the previously divided greater omentum and gastro-colic ligament using the Endo-Stitch device. An upper endoscopy was performed. There was no narrowing at the GE junction. The scope was easily advanced all the way to the pylorus which was clearly visualized. There was no narrowing anywhere and the sleeve's caliber was even throughout. The sleeve's staple line was inspected and there was no evidence of ischemia, bleeding or dehiscence. At that point the gastroscope was withdrawn from the patient?s mouth while we were decompressing the bowel and the stomach from any remaining air. I looked into the lesser sac to see how the sleeve was situating and it was situating well. There was no bleeding from the staple line, spleen, or short gastric vessels. The Mediflex retractor was removed, and the undersurface of the liver was inspected and there was no bleeding. The patient was placed in supine position. I closed the fascial defect of the 12 mm port site with a figure of eight #1 Polysorb suture. Then 100 cc 0.25 % Marcaine plain with 10 mg of Dexamethasone were used to infiltrate the fascial closure as well as all skin incisions. At this point, the abdomen was deflated, all ports were removed under direct vision, and no bleeding was noted from any of the port sites. The skin incisions were irrigated with saline and were closed with 4-0 absorbable monofilament sutures. Steri-Strips and OpSites were used to cover all incisions. The patient was extubated and was transferred in stable condition to the recovery room for further care. I was present and performed all valentin parts of the procedure. Ms. Stephensson was the medical assistant dermatology. There were no residents to assist with this case. Yousif Monzon MD, PhD, FACS Surgeon: Harjeet Monzon MD Anesthesia: GETA, local and other (TAP block) Integrated Specialist: Brittni Bueno Estimated blood loss (mL): 10 IV fluids (mL): 2,000 Urine output (mL): 0 (No [place] to record) Pathology: other (stomach) Condition: stable Disposition: PACU
--- NOTE | 2021-02-14 11:10 | PM.PNGS ---
Subjective Subjective Date of Service: 02/15/21 Interval history: Patient has mild incisional pain. Was able to ambulate and use the incentive spirometer. He is tolerating phase 1 bariatric diet. Physical Exam Vital Signs: Vital Signs: Last Vital Signs Temp 97.8 F 02/14/21 10:55 Pulse 127 H 02/14/21 11:00 Resp 20 02/14/21 11:00 BP 142/82 H 02/14/21 11:00 Pulse Ox 96 02/14/21 11:00 Body Mass Index 45.9 GI: Inspection: Yes normal to inspection, Yes incision (dry, clean and intact) and Yes obesity Extrem: Right lower extremity: normal to inspection (no calf tenderness) Left lower extremity: normal to inspection (no calf tenderness) Progress Note: A&P Assessment and plan (1) Morbid obesity: Status: Acute Assessment and Plan: 25 year old male was admitted 02/14/2021 with morbid obesity and comorbidities. Problem 1: s/p laparoscopic sleeve gastrectomy, gastropexy and lysis of adhesions Status: Doing well Plan: Check am labs, If OK, will continue phase 1 bariatric diet and discharge later today. (2) Obstructive sleep apnea: Problem details: AHI 12/hr, REM AHI 47/hr, O2 maryanne 84%, PLMS 18.5/hr with a PLMS arousal index of 4.2/hr. Status: Acute (3) S/P laparoscopic sleeve gastrectomy: Status: Acute (4) Congenital intra-abdominal adhesions: Status: Acute (5) GERD (gastroesophageal reflux disease): Status: Acute (6) Diaphragmatic hernia: Status: Acute (7) Liver fibrosis: Status: Acute (8) Asthma: Status: Acute (9) Depression: Status: Inactive (10) Back pain: Status: Acute Fall Risk Details Current Medications: Current Medications Generic Name Dose Route Start Last Admin Trade Name Freq PRN Reason Stop Dose Admin Albuterol Sulfate 2.5 mg 02/14/21 08:22 Albuterol Sulfate (0.083%) 2.5 Mg/3 Ml Vial.Neb INHALE ONCE PRN Wheezing Fentanyl 50 mcg 02/14/21 08:22 Fentanyl Citrate/Pf 100 Mcg/2 Ml Vial IVPUSH Q5M PRN Pain, Severe (Pain Scale 7-10) Fentanyl 25 mcg 02/14/21 08:22 Fentanyl Citrate/Pf 100 Mcg/2 Ml Vial IVPUSH Q5M PRN Pain, Moderate (Pain Scale 4-6 Hydromorphone HCl 0.5 mg 02/14/21 08:22 Hydromorphone Hcl 0.5 Mg/0.5 Ml Syringe IVPUSH Q5M PRN Pain, Severe (Pain Scale 7-10) Hydromorphone HCl 0.25 mg 02/14/21 08:22 Hydromorphone Hcl 0.5 Mg/0.5 Ml Syringe IVPUSH Q5M PRN Pain, Severe (Pain Scale 7-10) Lactated Ringer's 1,000 mls @ 20 mls/hr 02/13/21 14:30 02/14/21 07:11 Lr IVCONT 20 mls/hr .Q24H BRETT Administration Promethazine HCl 12.5 mg/ 50.5 mls @ 202 mls/hr 02/14/21 08:22 Sodium Chloride IV ONCE PRN Nausea and Vomiting Oxycodone HCl 10 mg 02/14/21 08:22 Oxycodone Hcl Immed Release 5 Mg Tablet PO ONCE PRN Pain, Severe (Pain Scale 7-10) Oxycodone HCl 5 mg 02/14/21 08:22 Oxycodone Hcl Immed Release 5 Mg Tablet PO ONCE PRN Pain, Severe (Pain Scale 7-10) Time Spent With Patient Time: Total time spent is greater than 50% in coordination of care (as documented) at patient's floor/unit and/or counseling patient: Time with patient: less than 15 minutes
[2021-02-14] MEDS: Pantoprazole Sodium 40 MG/10 ML VIAL IVPUSH ×2 (11:30→21:34)
[2021-02-14 12:43] LABS: Anion Gap 15 (12-20); Blood Urea Nitrogen 14 mg/dL (9-16); Carbon Dioxide 24 mmol/L (22-29); Chloride 105 mmol/L (96-108); Creatinine Clr Calc Pharmacy 163.2; Estimated Glomerular Filt Rate > 60; Glucose Random 183 mg/dL (60-115); Potassium 4.6 mmol/L (3.3-5.1); Sodium 139 mmol/L (135-145)
[2021-02-14] MEDS: Lactated Ringers 1,000 ML 125 ML IVCONT ×2 (12:45→21:23)
[2021-02-14 13:39] LABS: Calcium 9.4 mg/dL (8.4-10.2)
[2021-02-14] MEDS: ceFAZolin Sodium/Dextrose,Iso 2 GM/50 ML PIGGYBACK IV (13:49)
[2021-02-14] MEDS: Metoclopramide HCl 10 MG/2 ML VIAL IVPUSH ×2 (16:37→22:48)
[2021-02-14] MEDS: Albuterol Sulfate 90 MCG 8 GM INHALER 2 PUFF INHALE (19:42)
[2021-02-14] MEDS: ondansetron HCL 4 MG/2 ML VIAL IVPUSH (20:16)
[2021-02-14] MEDS: HYDROmorphone HCl 0.5 MG/0.5 ML SYRINGE 0.25 MG IVPUSH (22:47)
[2021-02-15 03:49] VITALS: BP 119/69; PULSE 85; RESP 20; TEMP 36.8; O2SAT 93
[2021-02-15] MEDS: Lactated Ringers 1,000 ML 125 ML IVCONT (04:29)
[2021-02-15 04:56] LABS: MANUAL DIFF FLAG NO
[2021-02-15] MEDS: ondansetron HCL 4 MG/2 ML VIAL IVPUSH (04:56)
[2021-02-15 04:59] LABS: Basophils Percent Auto 0.2 % (0-2); Hematocrit 40.5 % (42-52); Hemoglobin 12.4 g/dl (14.0-18.0); Imm Gran Abs Auto 0.21 X10*3/uL (0.00-0.03); Imm Gran Pct Auto 1.4 % (0.0-0.4); Lymphocytes Percent Auto 13.7 % (20-40); Mean Corpuscular HGB Conc 30.6 g/dl (31.0-36.0); Mean Corpuscular Hemoglobin 24.2 pg (27.0-33.0); Mean Corpuscular Volume 79.1 fL (80-98); Monocytes Absolute Auto 1.3 X10*3/uL (0.1-1.2); Monocytes Percent Auto 8.6 % (2-11); Neutrophils Absolute Auto 11.1 X10*3/uL (2.0-8.3); Neutrophils Percent Auto 76.1 % (45-73); Platelet Count 300 X10*3/uL (160-400); Red Blood Count 5.12 X10*6/uL (4.60-5.80); White Blood Count 14.6 X10*3/uL (4.8-10.8)
[2021-02-15 05:31] LABS: Anion Gap 14 (12-20); Blood Urea Nitrogen 7 mg/dL (9-16); Calcium 9.4 mg/dL (8.4-10.2); Carbon Dioxide 25 mmol/L (22-29); Chloride 104 mmol/L (96-108); Creatinine Clr Calc Pharmacy 204.1; Estimated Glomerular Filt Rate > 60; Glucose Random 110 mg/dL (60-115); Potassium 4.4 mmol/L (3.3-5.1); Sodium 139 mmol/L (135-145)
[2021-02-15] MEDS: Pantoprazole Sodium 40 MG/10 ML VIAL IVPUSH (07:29)
[2021-02-15 07:38] VITALS: BP 132/73; PULSE 94; RESP 18; TEMP 36.2; O2SAT 98
[2021-02-15] MEDS: Albuterol Sulfate 90 MCG 8 GM INHALER 2 PUFF INHALE (08:34)
== END 2021-02-15 09:15 | disposition home or self-care (01) | DRG 403 ==
LOC: HO.SSSA 11:03 → HO.S3 11:42
PROVIDERS: Physician Assistant; Admitting Provider Surgery; PCP Nurse Practitioner Family; Visit Provider Surgery
PROC: 0DB64Z3 Excision of Stomach, Percutaneous Endoscopic Approach, Vertical (ICD-10-PCS; CPT 43845; principal; 2021-02-14 07:30)
DX: E66.01 Morbid (severe) obesity due to excess calories (principal); K74.00 Hepatic fibrosis, unspecified; F32.9 Major depressive disorder, single episode, unspecified; G47.33 Obstructive sleep apnea (adult) (pediatric); K66.0 Peritoneal adhesions (postprocedural) (postinfection); Z20.822 Contact with and (suspected) exposure to COVID-19; Z68.42 Body mass index [BMI] 45.0-49.9, adult; K21.9 Gastro-esophageal reflux disease without esophagitis; J45.909 Unspecified asthma, uncomplicated
CPT/HCPCS: 36415; 80048; 80053; 80061; 83036; 83525; 84443; 85014; 85018; 85025; 85610; 85730; 86140; 86481; 86850; 86900; 86901; 87635; 88307; 88342; 99024; A4649; J0131; J0330; J0690; J1100; J1170; J2250; J2405; J2765; J3010

== ENCOUNTER → 2021-02-20 07:41 | Outpatient (BNVA) | payer OTHER, SELFPAY | PROVIDERS: PCP Nurse Practitioner Family; Visit Provider Surgery | DX: E66.01 Morbid (severe) obesity due to excess calories (principal); Z68.42 Body mass index [BMI] 45.0-49.9, adult | CPT/HCPCS: 99212 ==

== ENCOUNTER → 2021-03-22 08:30 | Outpatient (BNVA) | payer OTHER, SELFPAY | PROVIDERS: PCP Nurse Practitioner Family; Visit Provider Surgery | DX: E66.01 Morbid (severe) obesity due to excess calories (principal); Z68.42 Body mass index [BMI] 45.0-49.9, adult; Z71.3 Dietary counseling and surveillance | CPT/HCPCS: 99212 ==

== ENCOUNTER → 2021-05-01 07:20 | Outpatient (BNVA) | payer OTHER, SELFPAY | PROVIDERS: PCP Nurse Practitioner Family; Visit Provider Surgery | DX: E66.01 Morbid (severe) obesity due to excess calories (principal) | CPT/HCPCS: 99212 ==

== ENCOUNTER 2021-06-03 13:57 | Outpatient (REF) | payer OTHER, SELFPAY ==
[2021-06-03 15:16] LABS: MANUAL DIFF FLAG NO
[2021-06-03 15:24] LABS: Basophils Percent Auto 0.4 % (0-2); Eosinophils Absolute Auto 0.1 X10*3/uL (0.0-0.4); Hematocrit 45.5 % (42-52); Hemoglobin 14.2 g/dl (14.0-18.0); Imm Gran Abs Auto 0.15 X10*3/uL (0.00-0.03); Imm Gran Pct Auto 1.9 % (0.0-0.4); Lymphocytes Absolute Auto 1.5 X10*3/uL (1.2-4.9); Mean Corpuscular HGB Conc 31.2 g/dl (31.0-36.0); Mean Corpuscular Hemoglobin 24.2 pg (27.0-33.0); Mean Corpuscular Volume 77.6 fL (80-98); Mean Platelet Volume 10.7 fL (9.4-12.4); Monocytes Absolute Auto 0.6 X10*3/uL (0.1-1.2); Neutrophils Absolute Auto 5.8 X10*3/uL (2.0-8.3); Neutrophils Percent Auto 71.7 % (45-73); Platelet Count 335 X10*3/uL (160-400); Red Blood Count 5.86 X10*6/uL (4.60-5.80); Red Cell Distribution Width 15.2 % (11.0-16.0); White Blood Count 8.1 X10*3/uL (4.8-10.8)
[2021-06-03 16:00] LABS: Alanine Aminotransferase 31 U/L (0-40); Albumin Level 4.4 g/dL (3.5-5.0); Alkaline Phosphatase 78 U/L (39-117); Anion Gap 13 (12-20); Aspartate Amino Transferase 19 U/L (5-37); Bilirubin Total 0.4 mg/dL (0.0-1.0); Blood Urea Nitrogen 6 mg/dL (9-16); Calcium 10.1 mg/dL (8.4-10.2); Carbon Dioxide 27 mmol/L (22-29); Chloride 107 mmol/L (96-108); Estimated Glomerular Filt Rate > 60; Glucose Random 132 mg/dL (60-115); Iron 74 mcg/dL (45-160); Potassium 4.2 mmol/L (3.3-5.1); Sodium 143 mmol/L (135-145); Total Protein 7.7 g/dL (6.5-8.0)
[2021-06-03 16:07] LABS: Percent Iron Saturation 22 % (15-50); Total Iron Binding Capacity 334 mcg/dL (228-428); Unsaturated Iron Binding 260 ug/dL
[2021-06-03 16:21] LABS: Thyroid Stimulating Hormone 0.16 uIU/mL (0.32-4.0)
== END 2021-06-03 13:58 | disposition home or self-care (01) ==
LOC: HO.LAB 13:57
PROVIDERS: PCP Nurse Practitioner Family; Referring Provider Nurse Practitioner Family; Visit Provider Physician Assistant
DX: R10.11 Right upper quadrant pain (principal); K62.5 Hemorrhage of anus and rectum; D64.9 Anemia, unspecified; K59.00 Constipation, unspecified
CPT/HCPCS: 36415; 80053; 83540; 84443; 85025; 99212

== ENCOUNTER → 2021-06-24 07:02 | Outpatient (BNVA) | payer OTHER, SELFPAY | PROVIDERS: PCP Nurse Practitioner Family; Visit Provider Surgery ==

== ENCOUNTER → 2021-07-26 09:09 | Outpatient (BNVA) | payer OTHER, SELFPAY | PROVIDERS: PCP Nurse Practitioner Family; Visit Provider Surgery ==

== ENCOUNTER 2021-10-31 08:31 | Outpatient (REF) | payer OTHER, SELFPAY ==
[2021-10-31 10:06] LABS: Appearance Urine HAZY; Color Urine ORANGE; Leukocyte Esterase Urine NEG (NEG); Specific Gravity - Urine 1.025 (1.005-1.025); Urine Blood NEG (NEG); Urine Protein 2+ MG/DL (NEG-TRACE)
[2021-10-31 10:26] LABS: Amorphous Sediment Urine TRACE /LPF; Calcium Oxalate Crystals Urine 2+ /LPF; Mucus Urine 4+ /LPF; RBC Urine 0-2 /HPF (0); WBC Urine 0-2 /HPF (0-4)
[2021-10-31 10:50] LABS: CT PCR NOT DETECTED (Not Detect.); NG PCR NOT DETECTED (Not Detect.)
== END 2021-10-31 08:32 | disposition home or self-care (01) ==
LOC: HO.LAB 08:31
PROVIDERS: PCP Nurse Practitioner Family; Visit Provider Nurse Practitioner Family
DX: R30.0 Dysuria (principal)
CPT/HCPCS: 81001; 87086; 87491; 87591

== ENCOUNTER 2021-12-08 05:57 | Emergency (ER) | payer OTHER, SELFPAY ==
[2021-12-08 06:06] VITALS: BP 131/86; PULSE 99; RESP 16; TEMP 35.9; O2SAT 99; BMI 29.6
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
== END 2021-12-08 07:16 | disposition home or self-care (01) ==
LOC: HO.ED 06:44
PROVIDERS: Emergency Provider Emergency Medicine; PCP Nurse Practitioner Family
DX: F10.129 Alcohol abuse with intoxication, unspecified (principal); Y90.9 Presence of alcohol in blood, level not specified; Z79.899 Other long term (current) drug therapy
CPT/HCPCS: 99283

== ENCOUNTER 2023-05-25 07:38 | Outpatient (AMB) | payer OTHER, SELFPAY ==
--- NOTE | 2023-05-25 07:28 | A.OFFPC_ITS ---
Intake Visit Reasons: FMLA paper work Allergies No Known Allergies Allergy (Verified 11/06/22 15:13) HPI FMLA paper work HPI Details Pt needs paperwork filled out so he can go back to work tomorrow (05/26). Pt has been out of work due to anxiety/panic attacks. He has had therapy and is doing better. Denies any SI and HI. [facility] Medical History Asthma Back pain Depression Diaphragmatic hernia Dyslipidemia Fatty liver GERD (gastroesophageal reflux disease) Liver fibrosis Morbid obesity DANIE on CPAP Periodic limb movement Surgical History History of sleeve gastrectomy No significant past surgical history Family History Father Diabetes Mother No problems noted. Brother No problems noted. Brother No problems noted. Social History Household Members: Friend(s) Are you a primary respiratory care technician to a significant other at home: No Do you presently have visiting nurse or other home services: No Alcohol intake: current Alcohol intake frequency: a few times a month Alcohol type: wine and hard liquor Patient Tobacco Use Status: Never used Tobacco Current occupational status: employed Current occupation: [employer] Questionnaire Thrive Questionnaire Date Thrive assessed: 11/06/22 CLAUDIA-7 AMB Questionnaire CLAUDIA-7 Date CLAUDIA - 7 assessed: 11/06/22 Source: Developed by Drs. Juan Daniel Briones, Re Charles, Raciel Singh and colleagues, with an educational fede from [employer]. Review of Systems Const Reports as per HPI Physical exam (Primary Care) Tobacco/Smoking Status: Tobacco use Status Patient Tobacco Use Status Never used Tobacco 05/25/23 07:30 Thrive Assessment: Date of Thrive Assessment Date Thrive assessed 11/06/22 05/25/23 07:30 Const General: cooperative Orientation/consciousness: patient oriented x3 Neuro General: patient oriented x3 Psych Mental Status: mental status grossly normal Speech and movement: Clear speech present Affect: normal affect Attitude: cooperative Thought process: Normal thought process present Thought content: Normal thought content present Insight: Good insight present (Psych) Judgement: Good judgement present (Psych) Telehealth Telehealth Location of provider rendering services: practice address Location of patient: address on file Patient Identification confirmed using: Name, : Yes Telehealth method: voice only Patient verbally consented to treatment: Yes Patient verbally consented to billing insurance company: Yes Patient informed of any privacy concerns related to visit: Yes Minutes spent on Phone/Video with Pt.: 10 Assessment and Plan Assessment & Plan (1) Panic attacks: Code(s): F41.0 - Panic disorder [episodic paroxysmal anxiety] (2) Depression: Code(s): F32.9 - Major depressive disorder, single episode, unspecified (3) Anxiety: Code(s): F41.9 - Anxiety disorder, unspecified (4) Grief reaction: Code(s): F43.21 - Adjustment disorder with depressed mood Plan The patient agreed to the use of a medical device for this encounter. Scribed for MILLY Low by [employer] medical device, on 05/25/2023 at 07:30 EST. Coding Level of Care Code Tele Est Pt Level 3 (78193) Diagnoses Panic attacks F41.0 Depression F32.9 Anxiety F41.9 Grief reaction F43.21
== END 2023-05-25 14:53 | disposition home or self-care (01) ==
LOC: HO.HMGC 07:38
PROVIDERS: PCP Nurse Practitioner Family; Visit Provider Nurse Practitioner Family
DX: F41.0 Panic disorder [episodic paroxysmal anxiety] (principal); F32.9 Major depressive disorder, single episode, unspecified; F41.9 Anxiety disorder, unspecified; F43.21 Adjustment disorder with depressed mood
CPT/HCPCS: 99213

== ENCOUNTER 2024-02-18 08:45 | Emergency (ER) | payer OTHER, SELFPAY ==
[2024-02-18 09:08] VITALS: BP 150/93; PULSE 99; RESP 18; TEMP 36.4; O2SAT 100; BMI 46.4
--- NOTE | 2024-02-18 09:38 | ED.DENTAL ---
HPI - Dental/Oral General Chief complaint: Dental/Oral Stated complaint: Tooth pain Time Seen by Provider: 02/18/24 09:28 Source: patient Mode of arrival: ambulatory Limitations: no limitations History of Present Illness HPI Narrative: 28-year-old male With history of morbid obesity, depression, anxiety, asthma, DANIE, on Suboxone who presents the ER for evaluation of 1 week of left upper molar pain. He can't get into his dentist until 02/25. He states the pain has been keeping him up at night despite taking ibuprofen. No trauma or crack in the tooth. Pain is radiating up into the left face and to the ear. No facial swelling. No difficulty opening the jaw. MD Complaint: tooth pain Location: Tooth # (15) Onset (ago): day(s) (7) Duration: constant Severity: severe Severity scale (1-10): 10 Relieving factors: NSAIDs Exacerbating factors: chewing Context: poor dental care Associated symptoms: ear pain Treatment prior to arrival: oral analgesic Related Data Home Medications ?Medication ?Instructions ?Recorded ?Confirmed ibuprofen 800 mg tablet 800 mg PO Q8H PRN pain 05/03/21 11/06/22 Previous Rx's ?Medication ?Instructions ?Recorded docusate sodium 100 mg capsule 200 mg (2 x 100 mg) PO BEDTIME #60 06/03/21 (Colace) caps albuterol sulfate 90 mcg/actuation 2 puff inhalation Q4-6H PRN 06/10/22 aerosol inhaler Wheezing #8.5 grams Ventolin HFA 90 mcg/actuation 2 puff inhalation Q4-6H PRN 10/30/23 aerosol inhaler (albuterol sulfate) shortness of breath or wheezing #18 grams amoxicillin 875 mg-potassium 1 tab PO BID #20 tabs 02/18/24 clavulanate 125 mg tablet chlorhexidine gluconate 0.12 % 15 ml buccal BID #118 mL 02/18/24 mouthwash (Peridex) ibuprofen 800 mg tablet 800 mg PO Q8H PRN pain #14 tabs 02/18/24 Allergies Allergy/AdvReac Type Severity Reaction Status Date / Time No Known Allergies Allergy Verified 02/18/24 09:09 Review of Systems Review of Systems: Yes all other systems are reviewed and are negative PMFSH Past Medical History Medical History Asthma Back pain Depression Diaphragmatic hernia Dyslipidemia Fatty liver GERD (gastroesophageal reflux disease) Liver fibrosis Morbid obesity DANIE on CPAP Periodic limb movement Surgical History History of sleeve gastrectomy No significant past surgical history Family History Family History Father Diabetes Mother No problems noted. Brother No problems noted. Brother No problems noted. Social History Social History Household Members: Friend(s) Are you a primary director medicare sales to a significant other at home: No Do you presently have visiting nurse or other home services: No Alcohol intake: current Alcohol intake frequency: a few times a month Alcohol type: wine and hard liquor Patient Tobacco Use Status: Never used Tobacco Advance Directives: No Advance Directives Information Provided: No Do you have a plan to hurt others: No Plan Current occupational status: employed Current occupation: [employer] Physical Exam Vital Signs: Vital Signs: Last Vital Signs Temp 97.6 F 02/18/24 09:08 Pulse 99 02/18/24 09:08 Resp 18 02/18/24 09:08 BP 150/93 H 02/18/24 09:08 Pulse Ox 100 02/18/24 09:08 O2 Del Method Room Air 02/18/24 09:08 BMI result Body Mass Index 46.4 Appearance: Alert. Oriented X3. No acute distress. HEENT: normal external inspection. no facial swelling. no trisumus. normal speech, handling secretions normally. oral mucosa is moist and pink. poor dentition with multiple decayed teeth, left 1st molar missing. 2nd molar is decayed and tender with mild gingival tenderness and erythema. no fluctuance or visible abscess. CVS: Normal heart rate and rhythm. Pulses normal. Respiratory: No respiratory distress. Skin: Skin warm and dry. Normal skin color. Normal skin turgor. No rashes. Extremities: normal inspection x4. Neuro: Oriented X 3. Nonfocal Medical Decision Making Medical Decision Making MDM Narrative: 28 yo male with poor dentition presenting with left upper molar pain x1 week. no visible or palpable abscess. will treat with abx and nsaids. avoid narcotics as he is on suboxone. he follows / [facility] dental. stable for d/c home, return precautions discussed. Differential Diagnosis Differential Diagnoses: The differential diagnosis associated with the presentation includes dental decay, toothache, abscess, no evidence of ludwigs angina External Record Review External record reviewed: Prior outpatient labs Prescription Management I considered prescription management with: Pain Medication and Antibiotic Chronic Conditions Patient?s care impacted by: Other (substance use on suboxone) Critical Care Time Critical Care Time Critical Care Time: No Discharge Plan Discharge Clinical Impression: Toothache Patient Disposition: Home, Self-Care Instructions: Toothache (ED) Additional Instructions: Take the prescribed antibiotics as directed, complete the entire course and do not miss any doses Use the antiseptic mouthwash 2 times a day as directed. Avoid food that is very hot and very cold. Recommend using a warm black tea bag to the area to help with inflammation and pain. You can also try [id number] Orajel and clove oil. Take the prescribed ibuprofen as directed, take it with food. Also recommend adding 1000 mg of Tylenol every 6 hours, alternate this with ibuprofen for pain control. Follow-up with your dentist as soon as possible. If you develop new or worsening symptoms call 911 or come back to the ER for further evaluation. Prescriptions: New amoxicillin-pot clavulanate 875-125 mg tablet 1 tab PO BID Qty: 20 0RF ibuprofen 800 mg tablet 800 mg PO Q8H PRN (Reason: pain) Qty: 14 0RF chlorhexidine gluconate [Peridex] 0.12 % mouthwash 15 ml buccal BID Qty: 118 0RF No Action albuterol sulfate 90 mcg/actuation HFA aerosol inhaler 2 puff inhalation Q4-6H PRN (Reason: Wheezing) Qty: 8.5 2RF albuterol sulfate [Ventolin HFA] 90 mcg/actuation HFA aerosol inhaler 2 puff inhalation Q4-6H PRN (Reason: shortness of breath or wheezing) Qty: 18 0RF ibuprofen 800 mg tablet 800 mg PO Q8H PRN (Reason: pain) docusate sodium [Colace] 100 mg capsule 200 mg PO BEDTIME Qty: 60 5RF Referrals: Mayo Dumont, [facility] [Primary Care Provider] - Print Language: Tunisian
[2024-02-18 10:00] VITALS: BP 150/93; PULSE 99; RESP 18; TEMP 36.4; O2SAT 100
== END 2024-02-18 10:01 | disposition home or self-care (01) ==
PROVIDERS: Emergency Provider Emergency Medicine; PCP Nurse Practitioner Family
DX: K08.89 Other specified disorders of teeth and supporting structures (principal); R51.9 Headache, unspecified
CPT/HCPCS: 99283; 99284